=== PATIENT | male | born 1990 | race Caucasian/White ===

== ENCOUNTER 2017-02-26 18:19 | Emergency (ER) | payer MEDICAID ==
[~2017-02-26] VITALS: Ht 185.4 cm; Wt 86.4 kg
[2017-02-26 18:40] VITALS: BP 129/89
--- NOTE | 2017-02-26 19:08 | NUR ---
Patient to bed 10.
--- NOTE | 2017-02-26 19:10 | NUR ---
PATIENT IS A 26 Y/O MALE WHO PRESENTS TO THE ED C/O EYE PAIN. PT STATES, "MY LEFT EYE HAS BEEN HURTING FOR AWHILE AND I DON'T LIKE IT." PT REPORTS 7/10 ACHING PAIN THAT DOES NOT RADIATE. PT STATES CLEAR DISCHARGE FROM EYE. NOTED ERYTHEMA TO BOTH EYES. PT DENIES CP, SOB, N/V/D. PT AAOX4, RR EVEN/UNLABORED. PT REPOSITIONED FOR COMFORT, BED IN LOWEST POSITION. ER MD DR. YO NOTIFIED. WILL CONTINUE TO MONITOR.
[2017-02-26] MEDS ORDERED: TETRACAINE HCL/PF 0.5% OPTH 4 ML BTL OP ONE (20:50)
[2017-02-26] MEDS ORDERED: GENTAMICIN OP 0.3% 10.5 MG/3.5 GM TUBE OP ONE (20:50)
[2017-02-26] MEDS ORDERED: TETRACAINE HCL/PF 0.5% OPTH 4 ML BTL ONE (20:58)
--- NOTE | 2017-02-26 21:38 | NUR ---
Patient appears to be resting comfortably in bed. Vital Signs within normal limits. Respirations even and unlabored.
--- NOTE | 2017-02-26 21:39 | NUR ---
RT AND LT eye irrigated with 100ml OF NS.Pt procedure.
[2017-02-26 22:04] VITALS: BP 137/82
--- NOTE | 2017-02-26 22:04 | NUR ---
Patient discharged with v/s stable. Written and verbal after care instructions given and explained. Patient alert, oriented and verbalized understanding of instructions. Ambulatory with steady gait. All questions addressed prior to discharge. ID band removed. Patient advised to follow up with PMD. Rx of TOBREX AND GENTAK given. Patient educated on indication of medication including possible reaction and side effects. Opportunity to ask questions provided and answered.
== END 2017-02-26 22:04 | disposition home or self-care (01) ==
LOC: MED 18:19
DX: T15.01XA Foreign body in cornea, right eye, initial encounter (principal); T15.02XA Foreign body in cornea, left eye, initial encounter; R03.0 Elevated blood-pressure reading, without diagnosis of hypertension
CPT/HCPCS: 99283

== ENCOUNTER 2020-06-20 10:56 | Emergency (ER) | payer SELFPAY ==
[~2020-06-20] VITALS: Ht 172.7 cm; Wt 81.6 kg
[2020-06-20 11:04] VITALS: BP 147/93
[2020-06-20 11:55] VITALS: BP 147/93
== END 2020-06-20 11:56 | disposition home or self-care (01) ==
LOC: MED 10:56
DX: S61.412A Laceration without foreign body of left hand, initial encounter (principal); W45.8XXA Other foreign body or object entering through skin, initial encounter; Y93.89 Activity, other specified; Y92.89 Other specified places as the place of occurrence of the external cause; Y99.8 Other external cause status
CPT/HCPCS: 12001; 99282